=== PATIENT | female | born 1990 | race Caucasian/White ===

== ENCOUNTER 2019-12-10 11:05 | Emergency (ER) | payer MEDICAID ==
[~2019-12-10] VITALS: Ht 154.9 cm; Wt 59.0 kg
[~2019-12-10 11:05] MED LIST: PRENCAP15; [UNRECOGNIZED DRUG - CODE]
[2019-12-10 12:15] VITALS: BP 112/76
[2019-12-10] MEDS ORDERED: KETOROLAC TROMETH 60MG/2ML VIAL IM ONE (13:15)
[2019-12-10] MEDS ORDERED: cefTRIAXone SOD 1,000 MG VL IM ONE (13:15)
== END 2019-12-10 13:59 | disposition home or self-care (01) ==
LOC: ER 11:05
DX: L02.413 Cutaneous abscess of right upper limb (principal); J45.909 Unspecified asthma, uncomplicated; F17.210 Nicotine dependence, cigarettes, uncomplicated; Z88.5 Allergy status to narcotic agent; Z79.899 Other long term (current) drug therapy
CPT/HCPCS: 96372; 99284; J0696; J1885

== ENCOUNTER → 2020-04-05 | Emergency (ER) | payer MEDICAID ==
[~2020-04-05] VITALS: Ht 154.9 cm; Wt 56.7 kg
[2020-04-05 03:33] VITALS: BP 133/87
== END | disposition home or self-care (01) ==
LOC: ER 03:13
DX: H66.91 Otitis media, unspecified, right ear (principal); J02.9 Acute pharyngitis, unspecified; Z20.822 Contact with and (suspected) exposure to COVID-19
CPT/HCPCS: 36415; 87426